=== PATIENT | male | born 1945 | race Caucasian/White ===

== ENCOUNTER 2016-09-05 19:34 | Emergency (ER) | payer OTHER ==
[2016-09-05 20:05] VITALS: BP 142/85; BMI 24.4
--- NOTE | 2016-09-05 22:10 | DR.GENAD ---
HPI - PCP Primary Care Physician: TAMARA - HPI Comment HPI Comment: PATIENT FELL FEW HOURS AGO AND PRESENTS TO ED WITH BELOW INJURIES. NO LOC. TD NOT UTD. - Complaint/Symptoms Chief Complaint Doctors Comments: FELL, SKIN TEAR RT ELBOW AND RT HIP AND RT ELBOW PAIN. Chief Complaint:: FELL COUPLE OF HOURS AGO. PAIN TO RIGHT HIP AND HAS TORN SKIN TO RIGHT ELBOW AREA. DRESSING HAS BEEN APPLIED Self Treatment fo Chief Complaint: BANDAGE TO LEFT ELBOW - Nurses notes reviewed Nurses Notes Review: Yes - Source History Provided: Patient, Family Member - Mode of Arrival Mode of Arrival: Ambulatory - Timing Onset of Chief Complaint: 09/05/16 Came on: Suddenly - Duration Duration: Constant Duration: Hours - Severity Severity: Moderate PMH - PMH Past Medical History: Yes Past Medical History: Arthritis, GERD, Hypertension Past Surgical History: Yes Surgical History: Appendectomy, Ortho Surgery, Tonsillectomy, Other Past Surgical History Comment: ROTATOR CUFF - Family History History of Family Medical Conditions: Yes Family Medical History: Diabetes Mellitus, [place], Hypertension - Social History Type of Tobacco Use: Cigarettes Alcohol Use: None Do you use any recreational Drugs:: No Lives With: Family Lives Where: Home - infectious screening In the last 2 months have you had wt loss of >10#?: NO Have you had fever, night sweats or hemotysis?: No Have you traveled outside the country in the last 6 months?: No Isolation: Standard ROS - Review of Systems Constitutional: No Symptoms Reported Eyes: No Symptoms Reported ENTM: No Symptoms Reported Respiratoy: No Symptoms Reported Cardiovascular: No Symptoms Reported Gastrointestinal/Abdominal: No Symptoms Reported Genitourinary: No Symptoms Reported Neurological: No Symptoms Reported Musculoskeletal: Right, Elbow, Hip Integumentary: Other (SKIN TEAR RT ELBOW.) Hematologic/Lymphatic: Easy Bruising Endocrine: No Symptoms Reported All Other Systems: Reviewed and Negative PE - Vital Signs Vitals: Temperature 97.8 F Pulse Rate 113 Respiratory Rate 18 Blood Pressure [Left Arm] 122/75 Blood Pressure 142/85 O2 Sat by Pulse Oximetry 97 - General Limitations: No Limitations General Appearance: Alert - Head Head Exam: Normal Inspection - Eyes Eye exam: Normal Appearance - ENT ENT Exam: Normal External Ear Exam External Ear Exam: Normal External Inspection TM/Canal Exam: Bilateral Normal Nose Exam: Normal Nose Exam Mouth Exam: Normal Inspection Throat Exam: Normal Inspection - Neck Neck Exam: Trachea Midline - Chest Chest Inspection: Symmetric Chest Wall Rise - Respiratory Respiratory Exam: Normal Lung Sounds Bilat Respiratory Exam: Bilateral Clear to Auscultation - Cardiovascular Cardiovascular Exam: Regular Rate, Normal Rhythm, Normal Heart Sounds - Abdominal Exam Abdominal Exam: Normal Bowel Sounds, Soft. negative: Tenderness - Extremities Extremities Exam: Tenderness (RT ELBOW AND RT HIP TENDERNESS.), Joint Swelling ( RT ELBOW SWELLING.) - Back Back Exam: Paraspinal Tenderness (LOWER BACK), Vertebral Tenderness - Neurologic Neurological Exam: Alert, Oriented X3 - Psychiatric Psychiatric Exam: Normal Mood - Skin Skin Exam: Erythema, Other (SKIN TEAR RIGHT ELBOW.) MDM - Differential Diagnosis Differential Diagnosis: RIGHT ELBOW AND RT HIP FRACTURE, SPRAIN, CONTUSION AND SKIN TEAR Course - Treatment Treatment: SEE ORDERS. - Education/Counseling Education/Counseling: Patient, Education Educated On: Diagnosis, Needs for Follow Up ROR - XRAY XRAY Interpreted by: Radiologist XRAY Findings: REPORT DISCISS WITH PATIENT. - Diagnosis Discharge Problem: Skin tear Hip pain Qualifiers: Laterality: right Qualified Code(s): M25.551 - Pain in right hip Contusion of elbow, right Qualifiers: Encounter type: initial encounter Qualified Code(s): S50.01XA - Contusion of right elbow, initial encounter - Discharge Plan Disposition: HOME, SELF-CARE Condition: Stable - Follow ups/Referrals Follow ups/Referrals: Kingsley Ramos [Primary Care Provider] - 3 days - Instructions Instructions: Hip Pain, Elbow Contusion, Skin Tear Care, [id number] Additional Instructions: RETURN TO ED IF WORSE.
--- NOTE | 2016-09-05 22:40 | RAD ---
HISTORY: Trauma, pain Study: Three views right elbow Comparison: None Findings: No acute fracture or dislocation identified. No joint effusion. There is a large enthesophyte at the triceps insertion. IMPRESSION: 1. No acute osseous abnormality. Reported By:
--- NOTE | 2016-09-05 22:41 | RAD ---
EXAM: Right hip x-ray INDICATION: Hip Pain COMPARISION: No priors for comparison TECHNIQUE: Two views FINDINGS: No acute fracture or dislocation. The joint spaces are preserved. The soft tissues are normal. No ra diopaque foreign body. IMPRESSION: No acute abnormality identified Reported By:
[2016-09-05] MEDS ORDERED: ADACEL TDaP IM ONE ×2 (22:54→23:01)
== END 2016-09-05 23:17 | disposition home or self-care (01) ==
LOC: ER 20:11
DX: S50.01XA Contusion of right elbow, initial encounter (principal); S51.011A Laceration without foreign body of right elbow, initial encounter; M25.551 Pain in right hip; W19.XXXA Unspecified fall, initial encounter; Y92.9 Unspecified place or not applicable
CPT/HCPCS: 73070; 73501; 90471; 99282; 99283

== ENCOUNTER 2017-08-06 14:54 | Emergency (ER) | payer OTHER, MEDICAID ==
[2017-08-06 15:04] VITALS: BP 142/80; BMI 24.0
--- NOTE | 2017-08-06 15:48 | DR.GENAD ---
HPI - PCP Primary Care Physician: Richard - HPI Comment HPI Comment: INCREASING PAIN. DIFFICULTY PUTTING WEIGHT ON RLE. NO OTHER INJURY REPORTED. - Complaint/Symptoms Chief Complaint Doctors Comments: TWISTED RT ANKLE AND FELL THIS TODAY HE STEP OUT OF A SHED. Chief Complaint:: About 11:00 this morning pt stepped out of shed and twisted right ankle and fell. Since then pt has had constant pain on outside of right ankle shooting out of toes rated 10/10 - Nurses notes reviewed Nurses Notes Review: Yes - Source History Provided: Patient - Mode of Arrival Mode of Arrival: Ambulatory - Timing Onset of Chief Complaint: 08/06/17 Came on: Suddenly - Duration Duration: Constant Duration: Hours - Severity Severity: Moderate PMH - PMH Past Medical History: Yes Past Medical History: CVA Past Medical History Comment: Degenerative Disc Disease. Blind in left eye Past Surgical History: Yes Surgical History: Appendectomy Past Surgical History Comment: left eye removed - Family History History of Family Medical Conditions: Yes Family Medical History: Diabetes Mellitus - Social History Does patient currently use any type of tobacco product: Yes Have you used tobacco products in the last 12 months: No Type of Tobacco Use: Cigarettes Does any household member use tobacco: Yes Alcohol Use: None Do you use any recreational Drugs:: No Lives With: Friend Lives Where: Home - infectious screening In the last 2 months have you had wt loss of >10#?: NO Have you had fever, night sweats or hemotysis?: No Have you traveled outside the country in the last 6 months?: No Isolation: Standard ROS - Review of Systems Constitutional: No Symptoms Reported Eyes: No Symptoms Reported ENTM: No Symptoms Reported Respiratoy: No Symptoms Reported Cardiovascular: No Symptoms Reported Gastrointestinal/Abdominal: No Symptoms Reported Genitourinary: No Symptoms Reported Neurological: No Symptoms Reported Musculoskeletal: No Symptoms Reported Integumentary: Bruises (RT ANKLE AND FOOT.) Hematologic/Lymphatic: No Symptoms Reported Endocrine: No Symptoms Reported All Other Systems: Reviewed and Negative PE - Vital Signs Vitals: Temperature 97.5 F Pulse Rate 103 Respiratory Rate 20 Blood Pressure [Left Arm] 122/75 Blood Pressure 142/80 O2 Sat by Pulse Oximetry 96 - General Limitations: No Limitations General Appearance: Alert - Head Head Exam: Normal Inspection - Eyes Eye exam: Normal Appearance - ENT ENT Exam: Normal External Ear Exam External Ear Exam: Normal External Inspection TM/Canal Exam: Bilateral Normal Nose Exam: Normal Nose Exam Mouth Exam: Normal Inspection Throat Exam: Normal Inspection - Neck Neck Exam: Trachea Midline - Chest Chest Inspection: Symmetric Chest Wall Rise - Respiratory Respiratory Exam: Normal Lung Sounds Bilat Respiratory Exam: Bilateral Clear to Auscultation - Cardiovascular Cardiovascular Exam: Regular Rate, Normal Rhythm, Normal Heart Sounds - Abdominal Exam Abdominal Exam: Normal Inspection - Extremities Extremities Exam: Tenderness (RT LATERAL FOOT SWOLLEN AND TENDER. RT ANKLE TENDER. ROM DECREASE.) - Back Back Exam: Paraspinal Tenderness (CHRONIC) - Neurologic Neurological Exam: Alert, Oriented X3 - Psychiatric Psychiatric Exam: Normal Affect, Normal Mood - Skin Skin Exam: Erythema MDM - Additional Information Additional Information Obtained From: Family - Differential Diagnosis Differential Diagnosis: RT ANKLE AND FOOT CONTUSION, SPRAIN AND FRACTURE. Course - Treatment Treatment: SEE ORDERS. - Education/Counseling Education/Counseling: Patient, Family Educated On: Diagnosis ROR - XRAY XRAY Interpreted by: Radiologist XRAY Findings: REPORT DISCUSS WITH PATIENT. - Diagnosis Discharge Problem: Ankle sprain Foot sprain Qualifiers: Encounter type: initial encounter Laterality: right Qualified Code(s): S93.601A - Unspecified sprain of right foot, initial encounter Foot contusion Qualifiers: Encounter type: initial encounter Laterality: right Qualified Code(s): S90.31XA - Contusion of right foot, initial encounter - Discharge Plan Disposition: 01 HOME, SELF-CARE Condition: Stable Prescriptions: Ketorolac Tromethamine [Toradol Tab] 10 mg PO BID PRN #15 tab PRN Reason: Pain - Follow ups/Referrals Follow ups/Referrals: Kingsley Ramos [Primary Care Provider] - 3 days - Instructions Instructions: Ankle Sprain, [id number], Foot Sprain, Foot Contusion Additional Instructions: RETURN TO ED IF WORSE.
[2017-08-06] MEDS ORDERED: TORADOL 60 MG VIAL IM ONE (15:53)
--- NOTE | 2017-08-06 15:59 | RAD ---
History: Right foot pain after twisting injury this morning Study: Views right foot including AP oblique and lateral projections Reported By:
--- NOTE | 2017-08-06 16:00 | RAD ---
HISTORY: Right ankle and foot pain status post injury. Study: Three views of the right ankle. Comparison: None. Findings: No acute cortical disruption or dislocation can be identified. No significant soft tissue swelling o r injury can be seen. 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 Large plantar based calcaneal enth esophyte. IMPRESSION: No acute osseous abnormality. Reported By:
[2017-08-06] MEDS ORDERED: TORADOL 60 MG VIAL ONE (16:07)
== END 2017-08-06 17:20 | disposition home or self-care (01) ==
LOC: ER 15:10
DX: S93.401A Sprain of unspecified ligament of right ankle, initial encounter (principal); S93.601A Unspecified sprain of right foot, initial encounter; S90.31XA Contusion of right foot, initial encounter; W19.XXXA Unspecified fall, initial encounter; Y92.9 Unspecified place or not applicable
CPT/HCPCS: 73610; 73630; 96372; 99282; 99283; J1885